=== PATIENT | male | born 1940 | race Caucasian/White ===

== ENCOUNTER 2016-05-10 09:22 | Inpatient (IN) | payer MEDICARE, BC ==
[~2016-05-10 09:22] MED LIST: ASPIRIN81 MG; ASPIRIN81 MG PO; ATENOLOL50 MG; BACTRIM DS TAB1 EAC2 PO; CAPOTEN25 MG; CAPTOPRIL PO; CELEXA40 MG; CLONAZEPAM0.5 MG PO; COLACE100 M1 PO; KLONOPIN0.5 MG PO; MACRODANTIN50 MG; MACRODANTIN50 MG PO; MIRALAX17 G2 PO; NEURONTIN100 MG PO; NIACIN500 MG; NITROGLYCERIN0.4 MG SL; NORCO 5/325 TAB1 TAB PO; PLAVIX75 MG; PLAVIX75 MG PO; PRAVACHOL20 MG; PRAVACHOL20 MG PO; PROPRANOLOL HCL40 M2 PO; TENORMIN50 MG PO; VENLAFAXINE H37.5 M3 PO; VITAMIN C250 MG PO; VITAMIN C500 M1 PO; VITAMIN D250000 UNI1 PO; VITAMIN D31000 UNI3 PO; XANAX0.25 MG PO; ZETIA10 MG
[2016-05-10 13:03] LABS: BASO % 0.2 % (0-2); EOSINOPHIL ABSOLUTE COUNT 0.1 tho/cmm (0.0-0.7); HCT-HEMATOCRIT 37.2 % (36.0-53.5); HGB-HEMOGLOBIN 12.1 gm/dl (13.5-17.0); IMMATURE GRANULOCYTES ABSOLUTE 0.04 tho/cmm (0-0.03); IMMATURE GRANULOCYTES PERCENT 0.3 % (0-0.3); LYMPH % 12.9 % (20-45); LYMPH ABSOLUTE COUNT 1.7 tho/cmm (0.8-4.5); MCH (MEAN CORPUSCULAR HGB) 28.3 pg (28.0-32.0); MCHC MEAN CORPUSCULAR HGB CONC 32.5 % (32.0-36.0); MCV (MEAN CELL VOLUME) 86.9 fl (82.0-96.0); MEAN PLATELET VOLUME 8.5 cmc (9.4-12.4); MONO % 8.6 % (0-12); MONOCYTE ABSOLUTE COUNT 1.1 tho/cmm (0.0-1.2); PLATELET COUNT 383 tho/cmm (150-450); RED BLOOD COUNT 4.28 mil/cmm (4.40-5.70); RED CELL DISTRIBUTION WIDTH 13.9 % (12.4-16.4)
[2016-05-10 13:06] LABS: INR 1.2 INR (0.9-1.1); PROTHROMBIN TIME 13.8 SECONDS (9.0-13.6)
[2016-05-10 13:14] LABS: ANION GAP 12 mmol/L (0-20); BLOOD UREA NITROGEN 17 mg/dl (6-24); CARBON DIOXIDE-VENOUS 26 mmol/L (22-32); CHLORIDE 100 mmol/l (96-110); CREATININE 0.73 mg/dl (0.60-1.30); GLUCOSE 79 mg/dL (70-110); POTASSIUM 4.1 mmol/L (3.7-5.1); SODIUM 134 mmol/L (135-145); eGFR VALUE FOR BLACK >90 mL/Min
[2016-05-12 06:32] LABS: BASO % 0.2 % (0-2); EOS % 2.8 % (0-7); EOSINOPHIL ABSOLUTE COUNT 0.3 tho/cmm (0.0-0.7); HCT-HEMATOCRIT 32.9 % (36.0-53.5); HGB-HEMOGLOBIN 10.7 gm/dl (13.5-17.0); IMMATURE GRANULOCYTES ABSOLUTE 0.04 tho/cmm (0-0.03); IMMATURE GRANULOCYTES PERCENT 0.3 % (0-0.3); LYMPH % 9.3 % (20-45); LYMPH ABSOLUTE COUNT 1.1 tho/cmm (0.8-4.5); MCH (MEAN CORPUSCULAR HGB) 27.8 pg (28.0-32.0); MCHC MEAN CORPUSCULAR HGB CONC 32.5 % (32.0-36.0); MCV (MEAN CELL VOLUME) 85.5 fl (82.0-96.0); MEAN PLATELET VOLUME 8.5 cmc (9.4-12.4); MONO % 9.4 % (0-12); MONOCYTE ABSOLUTE COUNT 1.1 tho/cmm (0.0-1.2); NEUTROPHIL ABSOLUTE COUNT 9.4 tho/cmm (1.6-8.0); NEUTROPHIL-AUTOMATED 9.4 tho/cmm (1.6-8.0); PLATELET COUNT 367 tho/cmm (150-450); RED BLOOD COUNT 3.85 mil/cmm (4.40-5.70)
[2016-05-12 06:49] LABS: BLOOD UREA NITROGEN 14 mg/dl (6-24); C-REACTIVE PROTEIN 15.2 mg/dl (0-0.9); CALCIUM 8.3 mg/dl (8.5-10.5); CARBON DIOXIDE-VENOUS 23 mmol/L (22-32); CREATININE 0.65 mg/dl (0.60-1.30); GLUCOSE 103 mg/dL (70-110); eGFR VALUE FOR BLACK >90 mL/Min
[2016-05-12 07:01] LABS: POTASSIUM 3.6 mmol/L (3.5-5.3); SODIUM 132 mmol/L (135-146)
[2016-05-12 07:15] LABS: ANION GAP 10 mmol/L (0-20); CHLORIDE 103 mmol/l (96-110)
[2016-05-13 15:16] LABS: ANION GAP 15 mmol/L (0-20); BLOOD UREA NITROGEN 13 mg/dl (6-24); CALCIUM 8.3 mg/dl (8.5-10.5); CARBON DIOXIDE-VENOUS 19 mmol/L (22-32); CHLORIDE 106 mmol/l (96-110); CREATININE 0.83 mg/dl (0.60-1.30); GLUCOSE 134 mg/dL (70-110); SODIUM 135 mmol/L (135-145); eGFR VALUE FOR BLACK >90 mL/Min
[2016-05-13 15:18] LABS: POTASSIUM 4.7 mmol/L (3.7-5.1)
[2016-05-14 06:19] LABS: BASO % 0.1 % (0-2); EOS % 4.7 % (0-7); EOSINOPHIL ABSOLUTE COUNT 0.5 tho/cmm (0.0-0.7); HGB-HEMOGLOBIN 11.1 gm/dl (13.5-17.0); IMMATURE GRANULOCYTES ABSOLUTE 0.05 tho/cmm (0-0.03); IMMATURE GRANULOCYTES PERCENT 0.5 % (0-0.3); LYMPH % 12.7 % (20-45); LYMPH ABSOLUTE COUNT 1.3 tho/cmm (0.8-4.5); MCH (MEAN CORPUSCULAR HGB) 27.8 pg (28.0-32.0); MCHC MEAN CORPUSCULAR HGB CONC 32.6 % (32.0-36.0); MCV (MEAN CELL VOLUME) 85.2 fl (82.0-96.0); MEAN PLATELET VOLUME 8.5 cmc (9.4-12.4); MONOCYTE ABSOLUTE COUNT 1.2 tho/cmm (0.0-1.2); NEUTROPHIL ABSOLUTE COUNT 7.1 tho/cmm (1.6-8.0); NEUTROPHIL-AUTOMATED 7.1 tho/cmm (1.6-8.0); PLATELET COUNT 376 tho/cmm (150-450); RED BLOOD COUNT 3.99 mil/cmm (4.40-5.70); WHITE BLOOD COUNT 10.2 tho/cmm (4.0-10.0)
[2016-05-14 06:36] LABS: ALBUMIN 1.8 g/dl (3.5-5.0); ANION GAP 14 mmol/L (0-20); BLOOD UREA NITROGEN 12 mg/dl (6-24); C-REACTIVE PROTEIN 10.8 mg/dl (0-0.9); CALCIUM 8.3 mg/dl (8.5-10.5); CARBON DIOXIDE-VENOUS 23 mmol/L (22-32); CHLORIDE 105 mmol/l (96-110); CREATININE 0.73 mg/dl (0.60-1.30); GLUCOSE 96 mg/dL (70-110); PHOSPHOROUS 2.2 mg/dl (2.5-4.9); SODIUM 138 mmol/L (135-145); eGFR VALUE FOR BLACK >90 mL/Min
[2016-05-14 06:37] LABS: POTASSIUM 3.8 mmol/L (3.7-5.1)
[2016-05-16 12:27] LABS: ANION GAP 14 mmol/L (0-20); BLOOD UREA NITROGEN 21 mg/dl (6-24); CALCIUM 8.9 mg/dl (8.5-10.5); CARBON DIOXIDE-VENOUS 23 mmol/L (22-32); CHLORIDE 108 mmol/l (96-110); CREATININE 0.89 mg/dl (0.60-1.30); GLUCOSE 137 mg/dL (70-110); SODIUM 140 mmol/L (135-145); eGFR VALUE FOR BLACK >90 mL/Min
[2016-05-16 12:29] LABS: POTASSIUM 5.1 mmol/L (3.7-5.1)
[2016-05-18 07:44] LABS: BASO % 0.2 % (0-2); EOS % 6.1 % (0-7); EOSINOPHIL ABSOLUTE COUNT 0.6 tho/cmm (0.0-0.7); HCT-HEMATOCRIT 31.3 % (36.0-53.5); HGB-HEMOGLOBIN 10.2 gm/dl (13.5-17.0); IMMATURE GRANULOCYTES ABSOLUTE 0.02 tho/cmm (0-0.03); IMMATURE GRANULOCYTES PERCENT 0.2 % (0-0.3); LYMPH % 18.2 % (20-45); LYMPH ABSOLUTE COUNT 1.7 tho/cmm (0.8-4.5); MCH (MEAN CORPUSCULAR HGB) 27.5 pg (28.0-32.0); MCHC MEAN CORPUSCULAR HGB CONC 32.6 % (32.0-36.0); MCV (MEAN CELL VOLUME) 84.4 fl (82.0-96.0); MEAN PLATELET VOLUME 8.8 cmc (9.4-12.4); MONO % 8.3 % (0-12); MONOCYTE ABSOLUTE COUNT 0.8 tho/cmm (0.0-1.2); NEUTROPHIL ABSOLUTE COUNT 6.2 tho/cmm (1.6-8.0); NEUTROPHIL-AUTOMATED 6.2 tho/cmm (1.6-8.0); PLATELET COUNT 338 tho/cmm (150-450); RED BLOOD COUNT 3.71 mil/cmm (4.40-5.70); RED CELL DISTRIBUTION WIDTH 14.3 % (12.4-16.4); WHITE BLOOD COUNT 9.2 tho/cmm (4.0-10.0)
[2016-05-18] MEDS ORDERED: [UNRECOGNIZED DRUG - OTHER] TOP (11:54)
[2016-05-18] MEDS ORDERED: BENADRYL25 M3 PO (11:54)
[2016-06-11] MEDS ORDERED: SENNA PLUS TAB1 EAC1 PO (12:05)
== END 2016-05-18 13:45 | disposition other institution (70) | DRG 579 ==
LOC: WCC 09:22 → BURN 11:19 → ORW 05-15 10:37 → PACU 05-15 11:20 → BURN 05-15 11:46
PROVIDERS: Family Medicine; Internal Medicine Infectious Disease; Nurse Practitioner Acute Care; ADMIT Surgery
PROC: 0Y6G0ZZ Detachment at Left Knee Region, Open Approach (ICD-10-PCS; principal; 2016-05-15)
DX: L89.524 Pressure ulcer of left ankle, stage 4 (principal); G93.40 Encephalopathy, unspecified; I73.9 Peripheral vascular disease, unspecified; G82.20 Paraplegia, unspecified; K59.2 Neurogenic bowel, not elsewhere classified; M86.9 Osteomyelitis, unspecified; E87.1 Hypo-osmolality and hyponatremia; B95.61 Methicillin susceptible Staphylococcus aureus infection as the cause of diseases classified elsewhere; E78.5 Hyperlipidemia, unspecified; F32.9 Major depressive disorder, single episode, unspecified; F41.9 Anxiety disorder, unspecified; I10 Essential (primary) hypertension; I25.10 Atherosclerotic heart disease of native coronary artery without angina pectoris
CPT/HCPCS: C1751; G0463; G8978-GP-CJ; G8978-GP-CL; G8979-GP-CJ; G8979-GP-CL; G8980-GP-CL; J0171; J2405; J7050; J7999; P9047